=== PATIENT | female | born 1985 | race Hispanic/Latino ===

== ENCOUNTER 2020-10-16 03:11 | Emergency (ER) | payer SELFPAY ==
[2020-10-16 05:49] VITALS: BP 168/110
== END 2020-10-16 09:04 | disposition home or self-care (01) ==
LOC: ED 03:11
DX: F10.920 Alcohol use, unspecified with intoxication, uncomplicated (principal); R03.0 Elevated blood-pressure reading, without diagnosis of hypertension; Z68.38 Body mass index [BMI] 38.0-38.9, adult; Z79.899 Other long term (current) drug therapy
CPT/HCPCS: 36415; 80053; 80307; 80320; 81001; 84703; 85027; G0480